=== PATIENT | female | born 1990 | race Caucasian/White ===

== ENCOUNTER 2017-09-23 17:36 | Emergency (ER) | payer MEDICAID ==
[~2017-09-23] VITALS: Ht 157.5 cm; Wt 81.6 kg
[2017-09-23 17:45] VITALS: BP 138/106
== END 2017-09-23 18:25 | disposition home or self-care (01) ==
LOC: ED 17:36
DX: B34.9 Viral infection, unspecified (principal); R03.0 Elevated blood-pressure reading, without diagnosis of hypertension